=== PATIENT | male | born 1990 | race Caucasian/White ===

== ENCOUNTER 2024-02-01 00:54 | Emergency (ER) | payer OTHER, SELFPAY ==
[2024-02-01 00:55] VITALS: BP 136/85; PULSE 88; RESP 18; TEMP 35.7; O2SAT 95; BMI 36.8
--- NOTE | 2024-02-01 01:14 | CT_ITS ---
EXAM: CT ABDOMEN AND PELVIS WITHOUT INTRAVENOUS CONTRAST CLINICAL INDICATION: Kidney Stone TECHNIQUE: Helically acquired images were obtained of the abdomen and pelvis without intravenous contrast. This CT exam was performed using one or more of the following dose reduction techniques: automated exposure control, adjustment of the mA and/or kV according to patient size, and/or use of iterative reconstruction technique. RADIATION DOSE: CTDIvol = 17.73 mGy, DLP = 1103.12 mGy-cm COMPARISON: No relevant prior studies available. FINDINGS: LOWER THORAX: A few small Schmorl''s nodes in the lower thoracic line. No suspicious bone lesions. No cardiomegaly. No significant pericardial effusion. ABDOMEN: LIVER: Unremarkable. Homogeneous. GALLBLADDER AND BILE DUCTS: Only minimally distended gallbladder, no obvious stones. No intra- or extrahepatic biliary ductal dilation. PANCREAS: Unremarkable. No focal cystic mass. SPLEEN: Unremarkable. Normal size without focal cystic or solid mass. ADRENALS: Unremarkable. No nodules. KIDNEYS AND URETERS: Unremarkable. Normal renal size and position. No hydronephrosis. No urinary tract stones. STOMACH AND BOWEL: Mild fluid and gas in the stomach and small bowel. Mild scattered gas and minimal stool in most of the colon, moderate stool in the distal sigmoid and rectum. No stomach or bowel distention. No focal inflammatory change. PELVIS: APPENDIX: The appendix contains some slight scattered gas fluid, tip measures roughly 6.5 mm including fluid on sagittal images, no surrounding inflammation. Not convincing for appendicitis. BLADDER: Moderately distended thin-walled urinary bladder, 13.4 cm craniocaudal. REPRODUCTIVE: Unremarkable as visualized. No mass. ABDOMEN and PELVIS: INTRAPERITONEAL SPACE: Unremarkable. No ascites or other fluid collection. No free air. BONES/JOINTS: See above. SOFT TISSUES: Mild fat-containing bilateral inguinal hernias. Trace fat in the umbilicus. VASCULATURE: Unremarkable. Abdominal aorta is non-dilated. LYMPH NODES: Unremarkable. No enlarged lymph nodes. CT/Abdomen/Pelvis without Cont IMPRESSION: 1. No hydronephrosis or urinary tract stones. Moderately distended urinary bladder. 2. Partially contracted gallbladder. 3. Small fat-containing hernias. 4. No evidence of appendicitis. Electronically Signed: Kimmie Aviles MD at 3:17 EDT ,
[2024-02-01 01:42] LABS: Bacteria 0 SEEN /hpf (None Seen); Mucous, Urine 0 SEEN /hpf (<or=2+); Red Blood Cells-Urine 0 SEEN /hpf (0-5); Squamous Epithelial Cells - UA 0 SEEN /hpf (0-5); White Blood Cells 0 SEEN /hpf (0-5)
[2024-02-01 01:44] LABS: Color, Urine Yellow (Yellow); Glucose, Dipstick Normal (Normal); Ketone-Dipstick Negative (Negative); Leukocyte Esterase-Dipstick Negative /ul (Negative); Nitrite-Dipstick Negative (Negative); Occult Blood-Urine Negative /ul (Negative); Protein-Dipstick Negative (Negative); Urine Bilirubin Dipstick Negative (Negative); Urine Clarity Clear (Clear); Urine Urobilinogen Normal (Normal)
[2024-02-01 03:54] VITALS: BP 147/95; PULSE 89; RESP 16; TEMP 36.4; O2SAT 95
--- NOTE | 2024-02-01 07:57 | EDS_ITS ---
HPI History of Present Illness Chief Complaint: Lower Extremity Injury Informant: patient Narrative Narrative: 33-year-old male states that this previous Wednesday he was at work and turned and felt some discomfort in the right inguinal groin region. He states it can bother him throughout the weekend and began to notice that the left inguinal region was also hurting. But then tonight at work he felt it more on the left side and also noticed he had pain radiating towards his testicle. Denies any urinary symptoms or fevers. Denies any testicular tenderness. No rashes. No masses in the scrotum. No vomiting or abdominal distention. No bruising. PFSH PFSH Allergy/AdvReac Type Severity Reaction Status Date / Time No Known Allergies Allergy Verified 02/01/24 00:55 Social History Smoking Status: Never smoker ROS ROS ED Constitutional Constitutional ED: Denies chills, fever(s) or weight loss Eyes Eyes: Denies change in vision or diplopia ENT ENT ED: Denies ear pain, rhinorrhea or sore throat Cardiovascular Cardiovascular: Denies chest pain, orthopnea, palpitations or racing heartbeat Respiratory/Chest Respiratory/Chest: Denies cough, dyspnea or orthopnea Gastrointestinal Gastrointestinal: Reports other Details: Right and left inguinal pain ; Denies abdominal pain, diarrhea, nausea or vomiting Genitourinary Genitourinary ED: Denies dysuria, hematuria or urinary frequency Musculoskeletal Musculoskeletal: Denies arthralgias or myalgias Integumentary Denies abscess or rash Neurologic Neurologic: Denies headache(s) or weakness Psychiatric Psychiatric: Denies anxiety, depression, suicidal ideation or suicidal thoughts Endocrine Endocrinology: Denies polydipsia, polyphagia or polyuria Allergic/Immunologic Allergic/Immunologic ED: Denies mouth swelling, tongue swelling or urticaria EXAM Physical Exam Const Vital Signs: 02/01/24 00:55 02/01/24 03:54 Temperature 96.3 F L 97.5 F L Temperature Source Temporal Pulse Rate 88 89 Respiratory Rate 18 16 Blood Pressure 136/85 H 147/95 H Blood Pressure Mean 102 112 Pulse Ox 95 95 Oxygen Delivery Method Room Air Positive well nourished and well developed General Appearance ED: well developed HEENT Reports normocephalic, head/scalp atraumatic and moist mucous membranes Eyes PERRL and EOMs intact bilaterally Neck no lymphadenopathy, supple and no JVD Resp normal respiratory effort and clear to auscultation bilaterally Cardio regular rate, regular rhythm and no murmurs GI GI Narrative: Patient is tenderness to palpation along the inguinal ligament in the area of the inguinal canal. I do not palpate any hernias. I do not appreciate any hernia on Valsalva. Inspection: Negative for abdominal distention Auscultation: normoactive bowel sounds Palpation: soft Narrative: 's testicles are nontender. No epididymal tenderness. There is no masses. There is a normal lie. Positive cremasteric reflex bilaterally. No lesions or lymphadenopathy seen. No discharge. Back/Spine no CVA tenderness and normal ROM Extremity normal to inspection General Extremety ED: Negative for edema General Extremity: Negative for edema Neuro oriented x3 and CN's II-XII intact bilaterally Sensorium / Orientation: alert Motor Exam: strength 5/5 throughout Psych mental status grossly normal Mood & Affect: Negative for depressed or tearful Skin no rashes or lesions noted and no wounds MDM MDM MDM Narrative Medical decision making narrative: Urinalysis was normal. CT of the abdomen pelvis for kidney stone protocol dem onstrates no obvious stone or hydronephrosis or hydroureter. Elevated is there is noted to be bilateral mild fat-containing inguinal hernias. At this point patient will be discharged home with instructions to follow-up in our clinic. I will put him on lifting restrictions. Would recommend ice as needed. Monitoring for any testicular changes. History & Record Review Discussion w/independent historian: Patient Lab Data Attestation: I reviewed the patient's lab results. Labs: Laboratory Results - last 24 hr 02/01/24 01:38 Urine Color Yellow Urine Clarity Clear Urine pH 6.0 Ur Specific Maurice 1.020 Urine Protein Negative Urine Glucose (UA) Normal Urine Ketones Negative Urine Occult Blood Negative Urine Nitrite Negative Urine Bilirubin Negative Urine Urobilinogen Normal Ur Leukocyte Esterase Negative Urine RBC 0 SEEN Urine WBC 0 SEEN Ur Squamous Epith Cells 0 SEEN Urine Bacteria 0 SEEN Urine Mucus 0 SEEN Radiography Diagnostic Testing: Clinical Impression(s) from Imaging Studies Abdomen/Pelvis CT 02/01/24 01:14 IMPRESSION: 1. No hydronephrosis or urinary tract stones. Moderately distended urinary bladder. 2. Partially contracted gallbladder. 3. Small fat-containing hernias. 4. No evidence of appendicitis. Electronically Signed: Kimmie Aviles MD at 3:17 EDT , Discharge Plan Triage Chief Complaint: Lower Extremity Injury ED Provider: Bladimir Staton Dx/Rx/DC Orders Clinical Impression: Inguinal strain Instructions: ED Groin Strain Primary Care Provider: Care Physician,No Primary Referrals: Care Physician,No Primary [Primary Care Provider] - Clinic,NOW [Non-Staff] - 1 Week Disposition Disposition: Home, Self Care Discharge Date/Time: 02/01/24 03:57
== END 2024-02-01 03:57 | disposition home or self-care (01) ==
PROVIDERS: Emergency Provider Emergency Medicine; Visit Provider Emergency Medicine
DX: S76.812A Strain of other specified muscles, fascia and tendons at thigh level, left thigh, initial encounter (principal); X58.XXXA Exposure to other specified factors, initial encounter; Y99.0 Civilian activity done for income or pay; Y92.89 Other specified places as the place of occurrence of the external cause; S76.811A Strain of other specified muscles, fascia and tendons at thigh level, right thigh, initial encounter
CPT/HCPCS: 74176; 81001; 99282